=== PATIENT | female | born 1950 | race Caucasian/White ===

== ENCOUNTER 2017-07-19 14:40 | Emergency (ER) | payer OTHER ==
[~2017-07-19] VITALS: Ht 162.6 cm; Wt 93.0 kg
[~2017-07-19 14:40] MED LIST: ATOR10; BENHYD1012; CYCL10 PO; ENAL10; EZET10 PO; FISH1000 PO; GLIM2 PO; HYDACE5 PO; HYDMOR2 PO; IBUP800; INSULANPEN SC; KETO10 PO; LISHYD2012 PO; LOVA20 PO; LOVA40 PO; METF500 PO; METO10 PO; METO50 PO; MULVITA; NITR100CA PO; ONDA4 PO; OXYACE5T PO; PENVK500 PO; PIOG15 PO; PROM25 PO; RANI150; RANI150 PO; RXHYDMOR2 PO; RXPENVK250 PO; RXPROM25 PO; TAMS.4ER PO; Zofran Odt4 MG SL
[2017-07-19 15:39] LABS: BASOPHILS ABSOLUTE AUTO 0.06 K/mm3 (0.00-0.23); BASOPHILS PERCENT AUTO 1 % (0-2); EOSINOPHILS ABSOLUTE AUTO 0.09 K/mm3 (0.00-0.68); EOSINOPHILS PERCENT AUTO 1 % (0-6); Hemoglobin 14.1 g/dL (11.5-16.0); IMMATURE GRAN ABSOLUTE AUTO 0.03 K/mm3 (0.00-0.10); IMMATURE GRAN PERCENT AUTO 0 % (0-1); LYMPHOCYTES ABSOLUTE AUTO 0.84 K/mm3 (0.84-5.20); LYMPHOCYTES PERCENT AUTO 11 % (21-46); MONOCYTES ABSOLUTE AUTO 0.91 K/mm3 (0.16-1.47); MONOCYTES PERCENT AUTO 12 % (4-13); Mean Corpuscular HGB 29.3 pg (26.0-34.0); Mean Corpuscular Volume 91 fL (80-100); Mean Platelet Volume 10.3 fL (9.1-12.4); NEUTROPHILS ABSOLUTE AUTO 5.69 K/mm3 (1.96-9.15); NEUTROPHILS PERCENT AUTO 75 % (41-73); Platelet Count 222 K/mm3 (150-400); RDW Coefficient Variation 13.5 % (11.7-14.2); RDW Standard Deviation 46.1 fL (35.1-46.3); Red Blood Cell Count 4.82 M/mm3 (3.80-5.20); White Blood Cell Count 7.62 K/mm3 (4.00-11.30)
[2017-07-19 15:57] LABS: Albumin, Blood 3.3 g/dL (3.4-5.0); Albumin/Globulin Ratio 0.9 (0.8-1.8); Bilirubin, Total 0.4 mg/dL (0.1-1.0); Bun/Creatinine Ratio 9.7 (12.0-20.0); Creatinine, Blood 1.13 mg/dL (0.40-1.00); Globulin, Blood 3.5 g/dL (2.2-4.0); Potassium, Blood 3.9 mmol/L (3.5-5.5); Total Protein, Blood 6.8 g/dL (6.4-8.2)
[2017-07-19 16:29] LABS: Influenza A Negative (NEGATIVE); Influenza B Negative (NEGATIVE)
[2017-07-19] MEDS ORDERED: Cheratussin AC118 ML PO (17:24)
[2017-07-19] MEDS ORDERED: Zofran Odt4 MG SL (17:24)
== END 2017-07-19 17:38 | disposition home or self-care (01) ==
LOC: ER 14:40
PROVIDERS: Physician Assistant
DX: J40 Bronchitis, not specified as acute or chronic (principal); R11.0 Nausea; R51 Headache; Z88.6 Allergy status to analgesic agent; Z88.5 Allergy status to narcotic agent; Z79.4 Long term (current) use of insulin; I10 Essential (primary) hypertension; K21.9 Gastro-esophageal reflux disease without esophagitis; E11.9 Type 2 diabetes mellitus without complications
CPT/HCPCS: 36415; 71046; 80053; 85025; 87804; 96374; 99283; J2405

== ENCOUNTER → 2017-08-09 | Outpatient (CLI) | payer OTHER ==
[~2017-08-09] MED LIST changes: +Cheratussin AC118 ML PO
== END ==
LOC: LAB SHORT 10:40 → LAB 10:40
DX: N18.3 Chronic kidney disease, stage 3 (moderate) (principal); D63.1 Anemia in chronic kidney disease
CPT/HCPCS: 86335

== ENCOUNTER 2018-04-20 01:35 | Emergency (ER) | payer OTHER ==
[~2018-04-20] VITALS: Ht 162.6 cm; Wt 96.2 kg
[2018-04-20] MEDS ORDERED: PIOG15 PO (01:58)
[2018-04-20] MEDS ORDERED: LOVA40 (01:58)
== END 2018-04-20 03:25 | disposition home or self-care (01) ==
LOC: ER 01:35
DX: M25.512 Pain in left shoulder (principal); M54.6 Pain in thoracic spine; Z88.6 Allergy status to analgesic agent; Z88.5 Allergy status to narcotic agent; Z79.899 Other long term (current) drug therapy; Z79.4 Long term (current) use of insulin; I10 Essential (primary) hypertension
CPT/HCPCS: 99283

== ENCOUNTER 2018-10-18 11:56 | Day surgery (SDC) | payer OTHER ==
[~2018-10-18] VITALS: Ht 162.6 cm; Wt 95.3 kg
[~2018-10-18 11:56] MED LIST changes: +LOVA40
[2018-10-18] MEDS ORDERED: Zantac150 MG PO (12:36)
[2018-10-18] MEDS ORDERED: LISI20 PO (12:37)
[2018-10-18] MEDS ORDERED: ZESTORETIC 20-121 EA (12:37)
[2018-10-18] MEDS ORDERED: GABA100 PO (12:38)
--- NOTE | 2018-10-18 14:29 | NUR ---
10/18/18 1429 Suly Chery VSS FOR PATIENT T/O CASE. SEE VS ON [place] SHEET. PATIENT TAKEN TO SDU WITHOUT S/S DISTRESS OR COMPLAINTS. ALERT,CONVERSIVE WITH STAFF.
== END 2018-10-18 14:45 | disposition home or self-care (01) ==
LOC: ORSCSDS 11:56
PROVIDERS: Anesthesiology
PROC: 3E0R33Z Introduction of Anti-inflammatory into Spinal Canal, Percutaneous Approach (ICD-10-PCS; principal; 2018-10-18 13:30)
DX: M50.122 Cervical disc disorder at C5-C6 level with radiculopathy (principal); M50.222 Other cervical disc displacement at C5-C6 level; K21.9 Gastro-esophageal reflux disease without esophagitis; E78.5 Hyperlipidemia, unspecified; E03.9 Hypothyroidism, unspecified; E78.00 Pure hypercholesterolemia, unspecified; E11.9 Type 2 diabetes mellitus without complications; Z79.899 Other long term (current) drug therapy
CPT/HCPCS: 82947; J1040; J2250; J3010; J7120

== ENCOUNTER 2019-05-22 08:53 | Day surgery (SDC) | payer OTHER ==
[~2019-05-22] VITALS: Ht 162.6 cm; Wt 94.8 kg
[~2019-05-22 08:53] MED LIST changes: +GABA100 PO; +LISI20 PO; -LOVA40; +ZESTORETIC 20-121 EA; +Zantac150 MG PO
--- NOTE | 2019-05-22 09:55 | NUR ---
History, Chart, Medications and Allergies reviewed before start of procedure. Patient confirms NPO status and agrees with scheduled surgery. Reports taking her colon prep with clear results. Patient States Post-Procedure ride home has been arranged with her daughter.
--- NOTE | 2019-05-22 10:47 | NUR ---
05/22/19 1047 Ceci Calvillo History, Chart, Medications and Allergies reviewed before start of procedure.PATIENT DETERMINED TO BE ASA APPROPRIATE FOR PROPOFOL SEDATION PRIOR TO START OF PROCEDURE BY .MONITOR INTACT WITH CONTINUOUS PULSE OXIMETRY AND INTERMITTENT BP.3-LEAD EKG REVIEWED WITH PHYSICIAN PRIOR TO START OF PROCEDURE.O2 VIA N/C INTACT THROUGHOUT SEDATION/PROCEDURE.
--- NOTE | 2019-05-22 12:17 | NUR ---
Discharge instructions reviewed with patient. Patient verbalizes understanding. Copy given to patient to take home. Discharged via wheelchair to private car for ride home.
== END 2019-05-22 23:01 | disposition home or self-care (01) ==
LOC: ORSCMMR 08:53 → ORD 10:00 → ORSCMMR 10:00
PROVIDERS: Internal Medicine Gastroenterology
PROC: 0DBN8ZX Excision of Sigmoid Colon, Via Natural or Artificial Opening Endoscopic, Diagnostic (ICD-10-PCS; principal; 2019-05-22 10:00)
PROC: 0DBM8ZX Excision of Descending Colon, Via Natural or Artificial Opening Endoscopic, Diagnostic (ICD-10-PCS; principal; 2019-05-22 10:00)
DX: Z12.11 Encounter for screening for malignant neoplasm of colon (principal); Z86.010 Personal history of colon polyps; D12.4 Benign neoplasm of descending colon; D12.5 Benign neoplasm of sigmoid colon; K57.30 Diverticulosis of large intestine without perforation or abscess without bleeding; E11.9 Type 2 diabetes mellitus without complications; I10 Essential (primary) hypertension; K21.9 Gastro-esophageal reflux disease without esophagitis; E66.9 Obesity, unspecified; Z68.36 Body mass index [BMI] 36.0-36.9, adult; Z79.4 Long term (current) use of insulin; Z79.899 Other long term (current) drug therapy
CPT/HCPCS: 82947; 88305; J2704; J7120

== ENCOUNTER 2022-07-21 13:56 | Emergency (ER) | payer OTHER ==
[~2022-07-21] VITALS: Ht 162.6 cm; Wt 99.8 kg
[2022-07-21 15:39] LABS: Influenza A, PCR NEGATIVE (NEGATIVE); Influenza B, PCR NEGATIVE (NEGATIVE); Resp Syncytial Virus, PCR NEGATIVE (NEGATIVE); SARS-Cov-2 (COVID-19) PCR, MMC NEGATIVE (NEGATIVE)
[2022-07-21] MEDS ORDERED: ONDA4ODT MM (17:02)
[2022-07-21] MEDS ORDERED: BENZ100A PO (17:02)
== END 2022-07-21 17:14 | disposition home or self-care (01) ==
LOC: ER 13:56
PROVIDERS: Student in an Organized Health Care Education/Training Program
DX: J06.9 Acute upper respiratory infection, unspecified (principal); I12.9 Hypertensive chronic kidney disease with stage 1 through stage 4 chronic kidney disease, or unspecified chronic kidney disease; N18.30 Chronic kidney disease, stage 3 unspecified; E11.22 Type 2 diabetes mellitus with diabetic chronic kidney disease; E11.40 Type 2 diabetes mellitus with diabetic neuropathy, unspecified; Z20.822 Contact with and (suspected) exposure to COVID-19; Z88.6 Allergy status to analgesic agent; Z88.5 Allergy status to narcotic agent; Z79.899 Other long term (current) drug therapy; Z79.4 Long term (current) use of insulin
CPT/HCPCS: 0241U; 71046; A9270